=== PATIENT | female | born 1960 | race Caucasian/White ===

== ENCOUNTER 2017-07-19 13:25 | Outpatient (CLI) | END 2017-07-19 13:26 | disposition home or self-care (01) | LOC: RAD 13:25 | PROVIDERS: ATTEND Family Medicine | DX: Z12.31 Encounter for screening mammogram for malignant neoplasm of breast (principal) | CPT/HCPCS: 77067 ==

== ENCOUNTER 2018-07-26 11:01 | Outpatient (CLI) ==
--- NOTE | 2018-07-27 09:24 | MAMMO ---
EXAM: Screening mammogram with tomosynthesis HISTORY: Screening COMPARISON: 07/19/2017 FINDINGS: MLO and CC views of the right and left breast were performed. Tomosynthesis was performed. Computer aided detection utilized. The breast tissue is almost entirely fatty replaced. Benign bila teral calcifications. There is no evidence for mass, asymmetry, distortion, or suspicious calcificati ons in either breast. IMPRESSION: 1. No mammographic evidence of malignancy in the right or left breast. 2. Annual screening mammogram is recommended in one year. BIRADS category 2, benign
== END 2018-07-26 11:02 | disposition home or self-care (01) ==
LOC: RAD 11:01
PROVIDERS: ATTEND Family Medicine
DX: Z12.31 Encounter for screening mammogram for malignant neoplasm of breast (principal)
CPT/HCPCS: 77067